=== PATIENT | female | born 1980 | race Caucasian/White ===

== ENCOUNTER 2017-06-06 16:22 | Emergency (ER) | payer BC, MEDICAID ==
[2017-06-06 16:31] VITALS: BP 119/72
[2017-06-06] MEDS ORDERED: Sodium Chloride 0.9% 10 ML Syringe FLUSH PRN (16:41)
--- NOTE | 2017-06-06 16:48 | EDM.PDOC ---
<Mindy Hewitt - Last Filed: 06/06/17 18:41> ED HPI GENERAL MEDICAL PROBLEM - General Chief Complaint: Respiratory Problem Stated Complaint: CAME FROM ACLR Time Seen by Provider: 06/06/17 16:22 Source of Information: Reports: Patient, Provider (Dr. Winston), RN, RN Notes Reviewed History Limitations: Reports: No Limitations - History of Present Illness INITIAL COMMENTS - FREE TEXT/NARRATIVE: Pt presents to the ER from the clinic. Patient states she began feeling ill on Friday (06-01). She states she started with a dry cough, sore throat, and fever. She has had the fever on and off since Friday. Patient states she feels a heaviness in her chest. Patient admits to a history of cardiomyopathy and CHF. 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: Musculoskeletal History: Reports: Fibromyalgia Psychiatric History: Reports: Depression Endocrine/Metabolic History: Reports: Hypothyroidism - Past Surgical History GI Surgical History: Reports: Hernia Repair/Other Female Surgical History: Reports: Section Social & Family History - Family History Family Medical History: Noncontributory - Tobacco Use Smoking Status *Q: Current Some Day Smoker Years of Tobacco use: 2 Packs/Tins Daily: 0.1 Month/Year Tobacco Last Used: 03/10/2006 Second Hand Smoke Exposure: No - Caffeine Use Caffeine Use: Reports: Coffee - Alcohol Use Days Per Week of Alcohol Use: 1 Number of Drinks Per Day: 3 Total Drinks Per Week: 3 - Recreational Drug Use Recreational Drug Use: No ED ROS GENERAL - Review of Systems Review Of Systems: ROS reveals no pertinent complaints other than HPI. ED EXAM, GENERAL - Physical Exam Exam: See Below Exam Limited By: No Limitations General Appearance: Alert, WD/WN, Moderate Distress Eye Exam: Bilateral Eye: EOMI, Normal Inspection, PERRL Ears: Normal External Exam, Hearing Grossly Normal Nose: Normal Inspection Throat/Mouth: Normal Inspection, Normal Lips, Normal Teeth, Normal Gums, Normal Oropharynx, Normal Voice, No Airway Compromise Head: Atraumatic, Normocephalic Neck: Normal Inspection, Supple, Non-Tender, Full Range of Motion Respiratory/Chest: No Respiratory Distress, Lungs Clear, Normal Breath Sounds, No Accessory Muscle Use, Chest Non-Tender Cardiovascular: Normal Peripheral Pulses, Regular Rate, Rhythm, No Edema, No Gallop, No JVD, No Murmur, No Rub Peripheral Pulses: 2+: Radial (L), Radial (R) GI/Abdominal: Normal Bowel Sounds, Soft, Non-Tender, No Organomegaly, No Distention, No Abnormal Bruit, No Mass (Female) Exam: Deferred EKG INTERPRETATION EKG Date: 06/06/17 Time: 16:32 Rhythm: NSR Rate (Beats/Min): 77 [place]: RAD-Right [place] Deviation Comparison: No Change Course - Vital Signs Last Recorded V/S: Last Vital Signs Temp 36.2 C 06/06/17 16:28 Pulse 66 06/06/17 16:28 Resp 18 06/06/17 16:28 BP 119/72 06/06/17 16:28 Pulse Ox 100 06/06/17 16:28 - Orders/Labs/Meds Orders: Active Orders 24 hr Category Date Time Status EKG Documentation Completion [RC] STAT Care 06/06/17 16:24 Active Peripheral IV Care [RC] . DIRECTED Care 06/06/17 16:41 Active CULTURE STREP A CONFIRMATION [] Stat Lab 06/06/17 16:30 Results STREP SCRN A RAPID W CULT CONF [] Stat Lab 06/06/17 16:30 Results Sodium Chloride 0.9% [Saline Flush] Med 06/06/17 16:41 Active 10 ml FLUSH ASDIRECTED PRN Peripheral IV Insertion Adult [OM.PC] Stat Oth 06/06/17 16:41 Ordered Medication Orders Sodium Chloride (Saline Flush) 10 ml FLUSH ASDIRECTED PRN PRN Reason: Keep Vein Open Last Admin: 06/06/17 16:51 Dose: 10 ml Labs: Laboratory Tests 06/06/17 06/06/17 06/06/17 Range/Units 16:36 16:36 16:36 D-Dimer, Quantitative < 100 (0-400) ng/mL Sodium 136 (135-145) mmol/L Potassium 3.4 L (3.6-5.0) mmol/L Chloride 101 (101-111) mmol/L Carbon Dioxide 24.0 (21.0-31.0) mmol/L Anion Gap 14.4 BUN 9 (7-18) mg/dL Creatinine 0.6 (0.6-1.3) mg/dL Est Cr Clr Drug Dosing 109.29 mL/min Estimated GFR (MDRD) > 60 BUN/Creatinine Ratio 15.00 Glucose 97 (74-105) mg/dL Calcium 9.6 (8.4-10.2) mg/dl Total Bilirubin 0.7 (0.2-1.0) mg/dL AST 20 (10-42) IU/L ALT 14 (10-60) IU/L Alkaline Phosphatase 43 (42-121) IU/L Troponin I < 0.02 (0.00-0.02) ng/ml B-Natriuretic Peptide < 5 (0-100) pg/ml Total Protein 8.4 H (6.7-8.2) g/dl Albumin 4.9 (3.2-5.5) g/dl Globulin 3.5 Albumin/Globulin Ratio 1.40 Rapid Strep: Negative Report from [facility] include CBC, TSH, BMP Mononucleosis: Negative Influenza A & B: Negative Meds: Medications Generic Name Dose Route Start Last Admin Trade Name Freq PRN Reason Stop Dose Admin Sodium Chloride 10 ml 06/06/17 16:41 06/06/17 16:51 Saline Flush FLUSH 10 ml ASDIRECTED PRN Administration Keep Vein Open Discontinued Medications Generic Name Dose Route Start Last Admin Trade Name Freq PRN Reason Stop Dose Admin Sodium Chloride 1,000 mls @ 999 mls/hr 06/06/17 17:48 06/06/17 17:56 Normal Saline IV 06/06/17 18:48 999 mls/hr .BOLUS ONE Administration Lorazepam 0.5 mg 06/06/17 17:57 06/06/17 18:02 Ativan IVPUSH 06/06/17 17:58 0.5 mg ONETIME ONE Administration - Radiology Interpretation Free Text/Narrative:: Chest xray not completed through the ER as one was completed at the clinic this afternoon. Report of chest xray from [facility]: Thoracic scoliosis with major convexity to the right and associated pectus excavatum deformity, lower sternum. Normal cardiac silhouette without cephalization of vascular flow, signs of alveolar edema, or dependent pleural fluid accumulation. No lung amss, hilar lymphadenopathy, or focal lobar pneumonia. No atelectasis/collapse. No pneumothorax Conclusion: Skeletal deformity. No acute cardiopulmonary abnormality. See rad report Departure - Departure Disposition: Home, Self-Care 01 Condition: Fair Clinical Impression: Viral upper respiratory illness, Weakness - Discharge Information Instructions: Shortness of Breath, Adult, [id number], Weakness, [id number] , Viral Respiratory Infection, [id number] Forms: ED Department Discharge Additional Instructions: Drink plenty of fluids Follow up with your primary care facility next week Return to the ER if there is any change or concern sleep as much as possible <Cristobal Malhotra - Last Filed: 06/06/17 19:28> Course - Re-Assessments/Exams Free Text/Narrative Re-Assessment/Exam: 06/06/17 19:26 re-exam; pt states feels much better now. thinks it's a combination of many factor like she has panic attacks and been sick with flu which her kids also had but they slept a lot and got better and she can't due to work. but she plan to do that this weekend. Departure - Departure Time of Disposition: 19:28
[2017-06-06 17:02] LABS: CHLORIDE,CL 101 mmol/L (101-111); SODIUM,NA 136 mmol/L (135-145)
[2017-06-06] MEDS ORDERED: Sodium Chloride 0.9% 1,000 ML IV ONE (17:48)
[2017-06-06] MEDS ORDERED: LORazepam 2 MG/ML Syringe IVPUSH ONE (17:57)
--- NOTE | 2017-06-09 13:23 | EKG ---
06/06/2017 - FRED ZIMMER - This 12-lead EKG shows normal sinus rhythm with possible right axis deviation. No significant ST elevation or ST depression noted on this 12-lead EKG. Nonspecific ST-T wave changes noted on lead V2. [facility] /[id number]
== END 2017-06-06 19:39 | disposition home or self-care (01) ==
LOC: DL.ED 16:22
DX: J06.9 Acute upper respiratory infection, unspecified (principal); R53.1 Weakness; E03.9 Hypothyroidism, unspecified; F17.210 Nicotine dependence, cigarettes, uncomplicated; Z88.6 Allergy status to analgesic agent; Z88.5 Allergy status to narcotic agent
CPT/HCPCS: 36415; 80053; 83880; 84484; 85379; 87081; 87430; 93005; 96361; 96374; 99285; J2060; J7030; J7050

== ENCOUNTER 2017-06-11 12:49 | Emergency (ER) | payer BC, MEDICAID ==
--- NOTE | 2017-06-11 13:05 | EDM.PDOC ---
ED HPI GENERAL MEDICAL PROBLEM - General Chief Complaint: Chest Pain Stated Complaint: [id number] CHEST PAIN SOB Time Seen by Provider: 06/11/17 13:04 Source of Information: Reports: Patient, Old Records, RN, RN Notes Reviewed History Limitations: Reports: No Limitations - History of Present Illness INITIAL COMMENTS - FREE TEXT/NARRATIVE: Pt arrives to ER by POV stating that she was instructed to come to the ER by her counselor. She has an appointment in clinic today at 3PM, but her counselor thought she should be evaluated immediately in case she is having a life or emergency. Pt states she has been sick since 06/01/17 when she had onset of fever, chills, cough with chest pain, nausea, sore throat, generalized body aches, and a headache. She was seen here in this ER for the same Sx's on 06/06/17 , at which time pt was sent to ER from the clinic for emergent evaluation. Pt states she has a history of anxiety, but this is different and she is worried that something serious could be wrong. Onset Date: 06/01/17 Duration: Constant Location: Reports: Chest, Generalized Quality: Reports: Pressure, Sharp Severity: Severe Improves with: Reports: None Worsens with: Reports: None Chest Pain Score (Numeric/FACES): 6 - Related Data Allergies Allergy/AdvReac Type Severity Reaction Status Date / Time acetaminophen [From Percocet] Allergy Cannot Verified 06/06/17 16:27 Remember oxycodone HCl [From Percocet] Allergy Cannot Verified 06/06/17 16:27 Remember Home Meds: Home Meds Levothyroxine 75 mcg PO ACBREAKFAST 06/21/14 [History] Past Medical History Cardiovascular History: Reports: Cardiomyopathy Respiratory History: Reports: Other (See Below) Other 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: Musculoskeletal History: Reports: Fibromyalgia Psychiatric History: Reports: Anxiety, Depression, Panic Attack Endocrine/Metabolic History: Reports: Hypothyroidism - Past Surgical History GI Surgical History: Reports: Hernia Repair/Other Female Surgical History: Reports: Section Social & Family History - Family History Family Medical History: Noncontributory - Tobacco Use Smoking Status *Q: Current Some Day Smoker Years of Tobacco use: 2 Packs/Tins Daily: 0.1 Month/Year Tobacco Last Used: 03/10/2006 Second Hand Smoke Exposure: No - Caffeine Use Caffeine Use: Reports: Coffee - Alcohol Use Days Per Week of Alcohol Use: 1 Number of Drinks Per Day: 3 Total Drinks Per Week: 3 - Recreational Drug Use Recreational Drug Use: No - Living Situation & Occupation Living situation: Reports: with Family Occupation: Employed ED ROS GENERAL - Review of Systems Review Of Systems: ROS reveals no pertinent complaints other than HPI. ED EXAM, GENERAL - Physical Exam Exam: See Below Exam Limited By: No Limitations General Appearance: Alert, WD/WN, No Apparent Distress, Anxious Ears: Normal External Exam, Normal Canal, Hearing Grossly Normal, Normal TMs Nose: Normal Inspection, Normal Mucosa, No Blood Throat/Mouth: Normal Inspection, Normal Lips, Normal Teeth, Normal Gums, Normal Oropharynx, Normal Voice, No Airway Compromise Head: Atraumatic, Normocephalic Neck: Normal Inspection, Supple, Non-Tender, Full Range of Motion, Other (no nuchal rigidity). No: Lymphadenopathy (L), Lymphadenopathy (R) Respiratory/Chest: No Respiratory Distress, No Accessory Muscle Use, Chest Non- Tender, Crackles (intermittent crackles at mid-chest and upper lung aparicio B/L that clear with cough). No: Rales, Rhonchi, Wheezing, Stridor, Pleural Rub, Retractions, Splinting, Prolonged Expiration Cardiovascular: Normal Peripheral Pulses, Regular Rate, Rhythm, No Edema, No Gallop, No JVD, No Murmur, No Rub GI/Abdominal: Normal Bowel Sounds, Soft, Non-Tender, No Distention, No Abnormal Bruit (Female) Exam: Deferred Rectal (Female) Exam: Deferred Back Exam: Full Range of Motion. No: CVA Tenderness (L), CVA Tenderness (R) Extremities: Normal Inspection, Normal Range of Motion, Non-Tender, Normal Capillary Refill, No Pedal Edema Neurological: Alert, Oriented, CN II-XII Intact, Normal Cognition, Normal Gait, Normal Reflexes, No Motor/Sensory Deficits Psychiatric: Anxious Skin Exam: Warm, Dry, Intact, Normal Color, No Rash EKG INTERPRETATION EKG Date: 06/11/17 Time: 13:00 Rhythm: Other (SR) Rate (Beats/Min): 94 [place]: RAD-Right [place] Deviation (possible) P-Wave: Present QRS: Normal ST-T: Normal QT: Normal SC/PQ Interval: Normal Comparison: No Change EKG Interpretation Comments: No acute ischemic changes. Course - Vital Signs Last Recorded V/S: Last Vital Signs Temp 36.9 C 06/11/17 12:54 Pulse 89 06/11/17 13:45 Resp 23 H 06/11/17 13:45 BP 125/82 06/11/17 13:45 Pulse Ox 99 06/11/17 13:45 - Orders/Labs/Meds Orders: Active Orders 24 hr Category Date Time Status EKG 12 Lead [EKG Documentation Completion] [RC] STAT Care 06/11/17 13:23 Active Chest 2V [CR] Stat Exams 06/11/17 13:24 Taken CULTURE BLOOD [BC] Stat Lab 06/11/17 13:35 Received CULTURE BLOOD [BC] Stat Lab 06/11/17 13:49 Received HCG QUALITATIVE,URINE [URCHEM] Stat Lab 06/11/17 13:23 Ordered UA W/MICROSCOPIC [URIN] Stat Lab 06/11/17 13:23 Ordered Sodium Chloride 0.9% [Saline Flush] Med 06/11/17 13:24 Active 10 ml FLUSH ASDIRECTED PRN Blood Culture x2 Reflex Set [OM.PC] Stat Oth 06/11/17 13:23 Ordered Peripheral IV Insertion Adult [OM.PC] Stat Oth 06/11/17 13:23 Ordered Medication Orders Sodium Chloride (Saline Flush) 10 ml FLUSH ASDIRECTED PRN PRN Reason: Keep Vein Open Last Admin: 06/11/17 14:27 Dose: 10 ml Labs: Laboratory Tests 06/11/17 06/11/17 06/11/17 Range/Units 13:23 13:23 13:35 WBC 5.8 (5.0-10.0) 10^3/uL RBC 4.87 (4.2-5.4) 10^6/uL Hgb 14.4 (12.0-16.0) g/dL Hct 41.0 (37.0-47.0) % MCV 84.2 D (80-100) fL MCH 29.6 (27.0-34.0) pg MCHC 35.1 H (33.0-35.0) g/dL Plt Count 265 (150-450) 10^3/uL Neut % (Auto) 63.4 (42.2-75.2) % Lymph % (Auto) 29.5 (20.5-50.1) % [place] % (Auto) 6.2 (2-8) % Eos % (Auto) 0.7 L (1.0-3.0) % Baso % (Auto) 0.2 (0.0-1.0) % D-Dimer, Quantitative (0-400) ng/mL Sodium (135-145) mmol/L Potassium (3.6-5.0) mmol/L Chloride (101-111) mmol/L Carbon Dioxide (21.0-31.0) mmol/L Anion Gap BUN (7-18) mg/dL Creatinine (0.6-1.3) mg/dL Est Cr Clr Drug Dosing mL/min Estimated GFR (MDRD) BUN/Creatinine Ratio Glucose (74-105) mg/dL Lactic Acid (0.5-2.2) mmol/L Calcium (8.4-10.2) mg/dl Magnesium (1.8-2.5) mg/dL Total Bilirubin (0.2-1.0) mg/dL AST (10-42) IU/L ALT (10-60) IU/L Alkaline Phosphatase (42-121) IU/L Troponin I (0.00-0.02) ng/ml C-Reactive Protein (0.0-1.3) mg/dL Total Protein (6.7-8.2) g/dl Albumin (3.2-5.5) g/dl Globulin Albumin/Globulin Ratio Amylase (28-100) U/L Lipase (22-51) U/L Urine Color Straw (YELLOW) Urine Appearance Clear (CLEAR) Urine pH 7.0 (5.0-9.0) Ur Specific [place] 1.010 (1.005-1.030) Urine Protein Negative (NEGATIVE) Urine Glucose (UA) Negative (NEGATIVE) Urine Ketones Negative (NEGATIVE) Urine Occult Blood Small H (NEGATIVE) Urine Nitrite Negative (NEGATIVE) Urine Bilirubin Negative (NEGATIVE) Urine Urobilinogen 0.2 (0.2-1.0) mg/dL Ur Leukocyte Esterase Negative (NEGATIVE) Urine RBC 0-5 /HPF Urine WBC 0-5 (0-5/HPF) /HPF Ur Epithelial Cells Few /HPF Urine Bacteria Rare (0-FEW/HPF) /HPF Urine Mucus Not seen /LPF Urine HCG, Qual Negative 06/11/17 06/11/17 06/11/17 Range/Units 13:35 13:35 13:35 WBC (5.0-10.0) 10^3/uL RBC (4.2-5.4) 10^6/uL Hgb (12.0-16.0) g/dL Hct (37.0-47.0) % MCV (80-100) fL MCH (27.0-34.0) pg MCHC (33.0-35.0) g/dL Plt Count (150-450) 10^3/uL Neut % (Auto) (42.2-75.2) % Lymph % (Auto) (20.5-50.1) % [place] % (Auto) (2-8) % Eos % (Auto) (1.0-3.0) % Baso % (Auto) (0.0-1.0) % D-Dimer, Quantitative < 100 (0-400) ng/mL Sodium 136 (135-145) mmol/L Potassium 4.0 (3.6-5.0) mmol/L Chloride 102 (101-111) mmol/L Carbon Dioxide 25.0 (21.0-31.0) mmol/L Anion Gap 13.0 BUN 6 L (7-18) mg/dL Creatinine 0.5 L (0.6-1.3) mg/dL Est Cr Clr Drug Dosing 131.14 mL/min Estimated GFR (MDRD) > 60 BUN/Creatinine Ratio 12.00 Glucose 72 L (74-105) mg/dL Lactic Acid 1.7 (0.5-2.2) mmol/L Calcium 9.7 (8.4-10.2) mg/dl Magnesium 2.0 (1.8-2.5) mg/dL Total Bilirubin 0.7 (0.2-1.0) mg/dL AST 23 (10-42) IU/L ALT 12 (10-60) IU/L Alkaline Phosphatase 38 L (42-121) IU/L Troponin I < 0.02 (0.00-0.02) ng/ml C-Reactive Protein (0.0-1.3) mg/dL Total Protein 7.9 (6.7-8.2) g/dl Albumin 4.9 (3.2-5.5) g/dl Globulin 3.0 Albumin/Globulin Ratio 1.63 Amylase 40 (28-100) U/L Lipase 20 L (22-51) U/L Urine Color (YELLOW) Urine Appearance (CLEAR) Urine pH (5.0-9.0) Ur Specific [place] (1.005-1.030) Urine Protein (NEGATIVE) Urine Glucose (UA) (NEGATIVE) Urine Ketones (NEGATIVE) Urine Occult Blood (NEGATIVE) Urine Nitrite (NEGATIVE) Urine Bilirubin (NEGATIVE) Urine Urobilinogen (0.2-1.0) mg/dL Ur Leukocyte Esterase (NEGATIVE) Urine RBC /HPF Urine WBC (0-5/HPF) /HPF Ur Epithelial Cells /HPF Urine Bacteria (0-FEW/HPF) /HPF Urine Mucus /LPF Urine HCG, Qual 06/11/17 Range/Units 13:35 WBC (5.0-10.0) 10^3/uL RBC (4.2-5.4) 10^6/uL Hgb (12.0-16.0) g/dL Hct (37.0-47.0) % MCV (80-100) fL MCH (27.0-34.0) pg MCHC (33.0-35.0) g/dL Plt Count (150-450) 10^3/uL Neut % (Auto) (42.2-75.2) % Lymph % (Auto) (20.5-50.1) % [place] % (Auto) (2-8) % Eos % (Auto) (1.0-3.0) % Baso % (Auto) (0.0-1.0) % D-Dimer, Quantitative (0-400) ng/mL Sodium (135-145) mmol/L Potassium (3.6-5.0) mmol/L Chloride (101-111) mmol/L Carbon Dioxide (21.0-31.0) mmol/L Anion Gap BUN (7-18) mg/dL Creatinine (0.6-1.3) mg/dL Est Cr Clr Drug Dosing mL/min Estimated GFR (MDRD) BUN/Creatinine Ratio Glucose (74-105) mg/dL Lactic Acid (0.5-2.2) mmol/L Calcium (8.4-10.2) mg/dl Magnesium (1.8-2.5) mg/dL Total Bilirubin (0.2-1.0) mg/dL AST (10-42) IU/L ALT (10-60) IU/L Alkaline Phosphatase (42-121) IU/L Troponin I (0.00-0.02) ng/ml C-Reactive Protein < 0.5 (0.0-1.3) mg/dL Total Protein (6.7-8.2) g/dl Albumin (3.2-5.5) g/dl Globulin Albumin/Globulin Ratio Amylase (28-100) U/L Lipase (22-51) U/L Urine Color (YELLOW) Urine Appearance (CLEAR) Urine pH (5.0-9.0) Ur Specific [place] (1.005-1.030) Urine Protein (NEGATIVE) Urine Glucose (UA) (NEGATIVE) Urine Ketones (NEGATIVE) Urine Occult Blood (NEGATIVE) Urine Nitrite (NEGATIVE) Urine Bilirubin (NEGATIVE) Urine Urobilinogen (0.2-1.0) mg/dL Ur Leukocyte Esterase (NEGATIVE) Urine RBC /HPF Urine WBC (0-5/HPF) /HPF Ur Epithelial Cells /HPF Urine Bacteria (0-FEW/HPF) /HPF Urine Mucus /LPF Urine HCG, Qual Pt had normal TSH on 06/06/17. Rapid strep, Influenza A/B, and mononucleosis: all negative on 06/06/17. Meds: Medications Generic Name Dose Route Start Last Admin Trade Name Freq PRN Reason Stop Dose Admin Sodium Chloride 10 ml 06/11/17 13:24 06/11/17 14:27 Saline Flush FLUSH 10 ml ASDIRECTED PRN Administration Keep Vein Open Discontinued Medications Generic Name Dose Route Start Last Admin Trade Name Freq PRN Reason Stop Dose Admin Al Hydroxide/Mg Hydroxide 30 ml 06/11/17 13:31 06/11/17 13:43 Gi Cocktail PO 06/11/17 13:32 30 ml ONETIME ONE Administration - Radiology Interpretation Free Text/Narrative:: 2V Chest Xray: no acute process per Rad. report. - Re-Assessments/Exams Free Text/Narrative Re-Assessment/Exam: 06/11/17 15:00 I explained the exam findings, results of all diagnostic tests, CXR findings, working diagnosis, and any potential or additionally considered diagnoses, treatment/disposition plan, self/home care instructions, rational for the diagnosis/treatment plan/disposition plan, anticipated course of illness, and follow up instructions to the pt and/or pt. The pt and/or pt acknowledges understanding of the above explanation(s), and of the signs and symptoms which should prompt her return of the to the ER should those or any other concerning symptoms develop. Departure - Departure Time of Disposition: 15:01 Disposition: Home, Self-Care 01 Condition: Good Clinical Impression: Pleurodynia, Post viral syndrome, Non-cardiac chest pain Instructions: Pleurodynia Forms: ED Department Discharge Additional Instructions: Rx: Decadron 4mg Rx: Promethazine Codeine syrup *Do not drive or work while under the influence of this medication. Use over the counter Ibuprofen (Motrin/Advil) 200mg: Take 3 tablets by mouth every 6 hours as needed for pain or inflammation. Take with food. Follow up in clinic in 5 days for recheck. - My Orders Last 24 Hours: My Active Orders 06/11/17 13:23 EKG 12 Lead [EKG Documentation Completion] [RC] STAT HCG QUALITATIVE,URINE [URCHEM] Stat UA W/MICROSCOPIC [URIN] Stat Blood Culture x2 Reflex Set [OM.PC] Stat Peripheral IV Insertion Adult [OM.PC] Stat 06/11/17 13:24 Chest 2V [CR] Stat Sodium Chloride 0.9% [Saline Flush] 10 ml FLUSH ASDIRECTED PRN 06/11/17 13:35 CULTURE BLOOD [BC] Stat 06/11/17 13:49 CULTURE BLOOD [BC] Stat - Assessment/Plan Last 24 Hours: My Active Orders 06/11/17 13:23 EKG 12 Lead [EKG Documentation Completion] [RC] STAT HCG QUALITATIVE,URINE [URCHEM] Stat UA W/MICROSCOPIC [URIN] Stat Blood Culture x2 Reflex Set [OM.PC] Stat Peripheral IV Insertion Adult [OM.PC] Stat 06/11/17 13:24 Chest 2V [CR] Stat Sodium Chloride 0.9% [Saline Flush] 10 ml FLUSH ASDIRECTED PRN 06/11/17 13:35 CULTURE BLOOD [BC] Stat 06/11/17 13:49 CULTURE BLOOD [BC] Stat
[2017-06-11] MEDS ORDERED: Sodium Chloride 0.9% 10 ML Syringe FLUSH PRN (13:24)
[2017-06-11] MEDS ORDERED: GI Cocktail Oral Solution 30 ML PO ONE (13:31)
[2017-06-11 14:03] LABS: CHLORIDE,CL 102 mmol/L (101-111); SODIUM,NA 136 mmol/L (135-145)
--- NOTE | 2017-06-11 15:09 | CR ---
CLINICAL HISTORY: 36-year-old dyspneic female with cough and chest pain. INTERPRETATION: Thoracolumbar scoliosis. Normal cardiac silhouette without cephalization of vascular flow, signs of alveolar edema or dependen t pleural effusion. Mild shaggy bronchitic pattern and associated air trapping (bronchospasm?) But no lung mass or focal lobar pneumonia. No new atelectasis/collapse or pneumothorax would compared to 05 June 2015 exam. CONCLUSION: No acute new cardiopulmonary abnormality.
[2017-06-11 15:42] VITALS: BP 118/78
== END 2017-06-11 15:38 | disposition home or self-care (01) ==
LOC: DL.ED 12:49
DX: R07.81 Pleurodynia (principal); B34.9 Viral infection, unspecified; J45.909 Unspecified asthma, uncomplicated; F17.210 Nicotine dependence, cigarettes, uncomplicated; Z88.8 Allergy status to other drugs, medicaments and biological substances; Z88.6 Allergy status to analgesic agent
CPT/HCPCS: 36415; 71046; 80053; 81001; 81025; 82150; 83605; 83690; 83735; 84484; 85025; 85379; 86140; 87040; 93005; 99285; A9270; J7050

== ENCOUNTER 2019-03-21 21:35 | Emergency (ER) | payer BC ==
--- NOTE | 2019-03-21 22:08 | EDM.PDOC ---
ED HPI GENERAL MEDICAL PROBLEM - General Chief Complaint: General Stated Complaint: HIGH BLOOD PRESSURE PER PT Time Seen by Provider: 03/21/19 22:05 Source of Information: Reports: Patient History Limitations: Reports: No Limitations - History of Present Illness INITIAL COMMENTS - FREE TEXT/NARRATIVE: onset no feeling well since yesterday worse tonight, called [facility] told to come here. states BP normally 120s/60s. gives h/o cardiomyopathy. pt c/o chest discomfort and general body discomfort. Dr Pedro LOCKE @ called to inform has already accepted pt for transfer. Headache Pain Score (Numeric/FACES): 5 - Related Data Allergies Allergy/AdvReac Type Severity Reaction Status Date / Time acetaminophen [From Percocet] Allergy Cannot Verified 06/06/17 16:27 Remember codeine Allergy Anaphylactic Verified 03/21/19 21:57 Shock oxycodone HCl [From Percocet] Allergy Cannot Verified 06/06/17 16:27 Remember Home Meds: Home Meds Levothyroxine Sodium 88 mcg PO DAILY 03/21/19 [History] Past Medical History HEENT History: Reports: None Cardiovascular History: Reports: Cardiomyopathy, Other (See Below) Other Cardiovascular History: Paroxysmal supraventricular tachycardia Respiratory History: Reports: Other (See Below) Other Respiratory History: Reactive Airway Disease Gastrointestinal History: Reports: Other (See Below) Other Gastrointestinal History: umbilical hernia Genitourinary History: Reports: None [employer] SURVEILLANCE History: Reports: Musculoskeletal History: Reports: Fibromyalgia, Other (See Below) Other Musculoskeletal History: diastasis recti Neurological History: Reports: Migraines Psychiatric History: Reports: Anxiety, Depression, Panic Attack, Other (See Below) Other Psychiatric History: premenstrual dysphoric disorder Endocrine/Metabolic History: Reports: Hypokalemia, Hypothyroidism Hematologic History: Reports: None Immunologic History: Reports: None Oncologic (Cancer) History: Reports: None Dermatologic History: Reports: None - Infectious Disease History Infectious Disease History: Reports: None - Past Surgical History Head Surgeries/Procedures: Reports: None GI Surgical History: Reports: Hernia Repair/Other Female Surgical History: Reports: Section Musculoskeletal Surgical History: Reports: Carpal Tunnel Social & Family History - Family History Family Medical History: Noncontributory - Caffeine Use Caffeine Use: Reports: Coffee - Living Situation & Occupation Living situation: Reports: with Family Occupation: Employed ED ROS GENERAL - Review of Systems Review Of Systems: Comprehensive ROS is negative, except as noted in HPI. ED EXAM, GENERAL - Physical Exam Exam: See Below Exam Limited By: No Limitations General Appearance: Alert, WD/WN, Mild Distress, Other (discomfort) Ears: Hearing Grossly Normal Throat/Mouth: Normal Voice, No Airway Compromise Head: Atraumatic Neck: Non-Tender, Full Range of Motion Respiratory/Chest: No Respiratory Distress Cardiovascular: Regular Rate, Rhythm GI/Abdominal: Soft, Non-Tender Neurological: Alert, Oriented, Normal Cognition, Normal Gait, No Motor/Sensory Deficits Psychiatric: Flat Affect Skin Exam: Warm, Dry, Normal Color Lymphatic: No Adenopathy Course - Vital Signs Last Recorded V/S: Last Vital Signs Temp 37.2 C 03/21/19 21:52 Pulse 96 03/21/19 23:24 Resp 16 03/21/19 23:24 BP 134/83 03/21/19 23:24 Pulse Ox 98 03/21/19 23:24 - Orders/Labs/Meds Orders: Active Orders 24 hr Category Date Time Status EKG Documentation Completion [RC] STAT Care 03/21/19 22:05 Active CULTURE URINE [RM] Stat Lab 03/21/19 23:45 Received Labs: Laboratory Tests 03/21/19 03/21/19 03/21/19 Range/Units 22:25 22:25 22:25 WBC 12.2 H (5.0-10.0) 10^3/uL RBC 3.84 L (4.2-5.4) 10^6/uL Hgb 10.7 L D (12.0-16.0) g/dL Hct 32.4 L (37.0-47.0) % MCV 84.4 (80-100) fL MCH 27.9 (27.0-34.0) pg MCHC 33.0 (33.0-35.0) g/dL Plt Count 263 (150-450) 10^3/uL Neut % (Auto) 69.3 (42.2-75.2) % Lymph % (Auto) 21.1 (20.5-50.1) % Gates % (Auto) 7.4 (2-8) % Eos % (Auto) 2.0 (1.0-3.0) % Baso % (Auto) 0.2 (0.0-1.0) % D-Dimer, Quantitative 466 H (0-400) ng/mL Sodium 136 (135-145) mmol/L Potassium 3.7 (3.6-5.0) mmol/L Chloride 106 (101-111) mmol/L Carbon Dioxide 24.0 (21.0-31.0) mmol/L Anion Gap 9.7 BUN 12 (7-18) mg/dL Creatinine 0.6 (0.6-1.3) mg/dL Est Cr Clr Drug Dosing 107.23 mL/min Estimated GFR (MDRD) > 60 BUN/Creatinine Ratio 20.00 Glucose 88 (74-105) mg/dL Calcium 8.9 (8.4-10.2) mg/dl Total Bilirubin 0.3 (0.2-1.0) mg/dL AST 37 (10-42) IU/L ALT 29 (10-60) IU/L Alkaline Phosphatase 117 (42-121) IU/L Troponin I < 0.02 (0.00-0.02) ng/ml B-Natriuretic Peptide (0-100) pg/ml Total Protein 6.2 L (6.7-8.2) g/dl Albumin 3.0 L (3.2-5.5) g/dl Globulin 3.2 Albumin/Globulin Ratio 0.94 TSH, Ultra Sensitive (0.45-5.33) uIu/mL Urine Color (YELLOW) Urine Appearance (CLEAR) Urine pH (5.0-9.0) Ur Specific [place] (1.005-1.030) Urine Protein (NEGATIVE) Urine Glucose (UA) (NEGATIVE) Urine Ketones (NEGATIVE) Urine Occult Blood (NEGATIVE) Urine Nitrite (NEGATIVE) Urine Bilirubin (NEGATIVE) Urine Urobilinogen (0.2-1.0) mg/dL Ur Leukocyte Esterase (NEGATIVE) Urine RBC /HPF Urine WBC (0-5/HPF) /HPF Ur Epithelial Cells (NOT SEEN) /HPF Amorphous Sediment (NOT SEEN) /HPF Urine Bacteria (0-FEW/HPF) /HPF Ur Random Creatinine mg/dL U Random Total Protein (0.00-9.9) mg/dL Protein/Creatinin Ratio 03/21/19 03/21/19 03/21/19 Range/Units 22:25 22:25 23:45 WBC (5.0-10.0) 10^3/uL RBC (4.2-5.4) 10^6/uL Hgb (12.0-16.0) g/dL Hct (37.0-47.0) % MCV (80-100) fL MCH (27.0-34.0) pg MCHC (33.0-35.0) g/dL Plt Count (150-450) 10^3/uL Neut % (Auto) (42.2-75.2) % Lymph % (Auto) (20.5-50.1) % Gates % (Auto) (2-8) % Eos % (Auto) (1.0-3.0) % Baso % (Auto) (0.0-1.0) % D-Dimer, Quantitative (0-400) ng/mL Sodium (135-145) mmol/L Potassium (3.6-5.0) mmol/L Chloride (101-111) mmol/L Carbon Dioxide (21.0-31.0) mmol/L Anion Gap BUN (7-18) mg/dL Creatinine (0.6-1.3) mg/dL Est Cr Clr Drug Dosing mL/min Estimated GFR (MDRD) BUN/Creatinine Ratio Glucose (74-105) mg/dL Calcium (8.4-10.2) mg/dl Total Bilirubin (0.2-1.0) mg/dL AST (10-42) IU/L ALT (10-60) IU/L Alkaline Phosphatase (42-121) IU/L Troponin I (0.00-0.02) ng/ml B-Natriuretic Peptide 17 (0-100) pg/ml Total Protein (6.7-8.2) g/dl Albumin (3.2-5.5) g/dl Globulin Albumin/Globulin Ratio TSH, Ultra Sensitive 2.91 (0.45-5.33) uIu/mL Urine Color Yellow (YELLOW) Urine Appearance Slightly cloudy (CLEAR) Urine pH 7.0 (5.0-9.0) Ur Specific [place] 1.020 (1.005-1.030) Urine Protein Negative (NEGATIVE) Urine Glucose (UA) Negative (NEGATIVE) Urine Ketones Negative (NEGATIVE) Urine Occult Blood Trace-intact H (NEGATIVE) Urine Nitrite Negative (NEGATIVE) Urine Bilirubin Negative (NEGATIVE) Urine Urobilinogen 0.2 (0.2-1.0) mg/dL Ur Leukocyte Esterase Trace H (NEGATIVE) Urine RBC 30-40 H /HPF Urine WBC 10-20 H (0-5/HPF) /HPF Ur Epithelial Cells Many H (NOT SEEN) /HPF Amorphous Sediment Moderate H (NOT SEEN) /HPF Urine Bacteria Many H (0-FEW/HPF) /HPF Ur Random Creatinine mg/dL U Random Total Protein (0.00-9.9) mg/dL Protein/Creatinin Ratio 03/21/19 Range/Units 23:45 WBC (5.0-10.0) 10^3/uL RBC (4.2-5.4) 10^6/uL Hgb (12.0-16.0) g/dL Hct (37.0-47.0) % MCV (80-100) fL MCH (27.0-34.0) pg MCHC (33.0-35.0) g/dL Plt Count (150-450) 10^3/uL Neut % (Auto) (42.2-75.2) % Lymph % (Auto) (20.5-50.1) % Gates % (Auto) (2-8) % Eos % (Auto) (1.0-3.0) % Baso % (Auto) (0.0-1.0) % D-Dimer, Quantitative (0-400) ng/mL Sodium (135-145) mmol/L Potassium (3.6-5.0) mmol/L Chloride (101-111) mmol/L Carbon Dioxide (21.0-31.0) mmol/L Anion Gap BUN (7-18) mg/dL Creatinine (0.6-1.3) mg/dL Est Cr Clr Drug Dosing mL/min Estimated GFR (MDRD) BUN/Creatinine Ratio Glucose (74-105) mg/dL Calcium (8.4-10.2) mg/dl Total Bilirubin (0.2-1.0) mg/dL AST (10-42) IU/L ALT (10-60) IU/L Alkaline Phosphatase (42-121) IU/L Troponin I (0.00-0.02) ng/ml B-Natriuretic Peptide (0-100) pg/ml Total Protein (6.7-8.2) g/dl Albumin (3.2-5.5) g/dl Globulin Albumin/Globulin Ratio TSH, Ultra Sensitive (0.45-5.33) uIu/mL Urine Color (YELLOW) Urine Appearance (CLEAR) Urine pH (5.0-9.0) Ur Specific [place] (1.005-1.030) Urine Protein (NEGATIVE) Urine Glucose (UA) (NEGATIVE) Urine Ketones (NEGATIVE) Urine Occult Blood (NEGATIVE) Urine Nitrite (NEGATIVE) Urine Bilirubin (NEGATIVE) Urine Urobilinogen (0.2-1.0) mg/dL Ur Leukocyte Esterase (NEGATIVE) Urine RBC /HPF Urine WBC (0-5/HPF) /HPF Ur Epithelial Cells (NOT SEEN) /HPF Amorphous Sediment (NOT SEEN) /HPF Urine Bacteria (0-FEW/HPF) /HPF Ur Random Creatinine 69 mg/dL U Random Total Protein 9 (0.00-9.9) mg/dL Protein/Creatinin Ratio 0.13 - Re-Assessments/Exams Free Text/Narrative Re-Assessment/Exam: 03/22/19 00:[address] Vasquez & Dr Helm & pt Departure - Departure Time of Disposition: 00:32 Disposition: Home, Self-Care 01 Condition: Good Clinical Impression: Hypertension Qualifiers: Hypertension type: unspecified Qualified Code(s): I10 - Essential (primary) hypertension - Discharge Information Forms: ED Department Discharge Additional Instructions: 1) rest 2) notify Dr Braden tomorrow 3) recheck if there is any change or concern Sepsis Event Note - Evaluation Sepsis Screening Result: No Definite Risk - Focused Exam Vital Signs: Vital Signs Temp Pulse Resp BP Pulse Ox 03/21/19 23:24 96 16 134/83 98 03/21/19 22:12 104 H 18 143/78 H 100 03/21/19 21:52 37.2 C 110 H 20 153/78 H 100 Date Exam was Performed: 03/22/19 Time Exam was Performed: 00:34 - My Orders Last 24 Hours: My Active Orders 03/21/19 22:05 EKG Documentation Completion [RC] STAT 03/21/19 23:45 CULTURE URINE [RM] Stat - Assessment/Plan Last 24 Hours: My Active Orders 03/21/19 22:05 EKG Documentation Completion [RC] STAT 03/21/19 23:45 CULTURE URINE [RM] Stat
[2019-03-21 22:53] LABS: ANION GAP 9.7; CHLORIDE,CL 106 mmol/L (101-111); SODIUM,NA 136 mmol/L (135-145)
[2019-03-21 23:25] VITALS: BP 134/83; PULSE 96
== END 2019-03-22 00:35 | disposition home or self-care (01) ==
LOC: DL.ED 21:35
DX: I10 Essential (primary) hypertension (principal); E03.9 Hypothyroidism, unspecified; Z88.5 Allergy status to narcotic agent; Z88.6 Allergy status to analgesic agent
CPT/HCPCS: 36415; 71045; 80053; 81001; 82570; 83880; 84156; 84443; 84484; 85025; 85379; 87086; 93005; 99285-25

== ENCOUNTER 2023-03-07 11:07 | Emergency (ER) | payer SELFPAY ==
[2023-03-07] MEDS ORDERED: Sodium Chloride 0.9% 1,000 ML IV ONE (11:13)
[2023-03-07] MEDS ORDERED: Lidocaine 2% 100 MG/5 ML Syringe ONE (11:14)
[2023-03-07] MEDS ORDERED: Lidocaine 1% 5 ML VIAL INJECT ONE (11:18)
[2023-03-07 11:22] LABS: BASOPHILS PERCENT AUTO 0.3 % (0.0-1.0); HEMATOCRIT 36.8 % (37.0-47.0); HEMOGLOBIN 12.6 g/dL (12.0-16.0); LYMPHOCYTES PERCENT AUTO 6.3 % (20.5-50.1); MEAN CORPUSCULAR HEMOGLOBIN 29.1 pg (27.0-34.0); MEAN CORPUSCULAR HGB CONC 34.2 g/dL (33.0-35.0); MONOCYTES PERCENT AUTO 12.1 % (2-8); NEUTROPHILS PERCENT AUTO 81.3 % (42.2-75.2); PLATELET COUNT,PLT 228 10^3/uL (150-450); RED BLOOD CELL COUNT 4.33 10^6/uL (4.2-5.4)
[2023-03-07] MEDS ORDERED: Metoclopramide 10 MG/2 ML SDV IVPUSH ONE (11:42)
[2023-03-07] MEDS ORDERED: fentaNYL 100 MCG/2 ML SDV IVPUSH ONE (12:29)
[2023-03-07 12:56] VITALS: BP 119/69; PULSE 86
== END 2023-03-07 13:00 | disposition home or self-care (01) ==
LOC: DL.ED 11:07
DX: G43.809 Other migraine, not intractable, without status migrainosus (principal); E03.9 Hypothyroidism, unspecified; Z88.5 Allergy status to narcotic agent; Z79.899 Other long term (current) drug therapy
CPT/HCPCS: 36415; 71045; 85025; 96361; 96374; 96375; 99283; 99284; J2765; J3010; J7030; J3490